=== PATIENT | male | born 1940 | race Caucasian/White ===

== ENCOUNTER 2017-12-22 12:18 | Emergency (ER) | payer MEDICARE, OTHER ==
[~2017-12-22] VITALS: Ht 180.3 cm; Wt 97.0 kg
[~2017-12-22 12:18] MED LIST: ATOR20TA42 PO; COUM5TAB PO; ENAL20TA81 PO; HYDR12.56 PO; PROT40TA PO; TOPR25TA2 PO; WARF2.5 PO
[2017-12-22] MEDS ORDERED: IOHEXOL 350 MG/ML 10 ML VIAL (for RAD DIAG) IVCONTRAST ONE (12:19)
[2017-12-22 12:22] VITALS: BP 160/76; PULSE 64; RESP 19; TEMP 97.8; O2SAT 97
[2017-12-22] MEDS ORDERED: SODIUM CHLOR 0.9% 1000 ML INJ 1,000 ML IV SCH (12:43)
[2017-12-22] MEDS ORDERED: MORPHINE SULFATE 4 MG/ML INJ IV PUSH ONE (12:45)
[2017-12-22] MEDS ORDERED: METOCLOPRAMIDE HCL 10 MG/2 ML VIAL IV PUSH ONE (12:45)
--- NOTE | 2017-12-22 13:51 | PD ---
HPI Chief Complaint: Abdominal Pain Time Seen by Provider: 12:29 Travel History International Travel<30 days: No Contact w/Intl Traveler<30days: No Traveled to known affect area: No History of Present Illness HPI 77-year-old male that presents to the ED for evaluation of abdominal cramping. Per patient his abdominal cramping since last night. Per patient he started on the upper abdomen and then slowly moved towards the lower abdomen. Per patient he has a history of diverticulitis. Per patient he feels somewhat similar except he does not have diarrhea. Per patient he has had a hernia repair on the left lower quadrant years ago. He has not had any surgeries in at least 5 years. Denies any recent travel. Per patient he had a normal bowel movement today but was not per patient "significant". He denies any blood in his stool. He denies any nausea or vomiting. Per patient the pain comes in waves and feels like a cramping. Per patient for about a year she has been having cramps on his arms and legs. Per patient he is never seen anybody for that as he thought it may be just related to his aging. Per patient abdominal pain felt kind of similar to the crampings that he has had on his arms and legs but it was more significant. Per significant other he was woken up by the pain multiple times through the night. She has no allergies to medication. No other medical issues. PFSH Past Medical History Hx Anticoagulant Therapy: Yes Atrial Fibrillation: Yes Cardiovascular Problems: Yes (A-FIB, HTN) Hypertension: Yes Past Surgical History Joint Replacement: Yes (RT HIP) Other Surgery: Yes (HERNIA REPAIR) Social History Alcohol Use: Yes (2 OR 3 MARTINI'S A DAY) Tobacco Use: No Substance Use: No Allergies-Medications (Allergen,Severity, Reaction): Coded Allergies: No Known Allergies (Verified Allergy, Mild, 06/18/07) Reported Meds & Prescriptions Reported Meds & Active Scripts Active Cipro (Ciprofloxacin HCl) 500 Mg Tab 500 Mg PO BID 10 Days Flagyl (Metronidazole) 500 Mg Tab 500 Mg PO BID 10 Days Zofran Odt (Ondansetron Odt) 4 Mg Tab 4 Mg SL Q6HR PRN Hydrocodone-Acetaminophen 5-325 mg Tab 1 Tab PO Q6H PRN Protonix (Pantoprazole Sodium) 40 Mg Tabdr 40 Mg PO DAILY Reported Toprol Xl (Metoprolol Succinate) 25 Mg Tabcr 25 Mg PO DAILY Hydrochlorothiazide (Miscellaneous Medication) 12.5 Mg Cap 0 Mg PO DAILY UNKNOWN DOSE Vasotec (Enalapril Maleate) 20 Mg Tab 20 Mg PO BID Coumadin 5 mg (Warfarin Sodium) 5 Mg Tab 5 Mg PO MONWEDFRI 3 Days Coumadin (Warfarin Sodium) 2.5 Mg Tab 2.5 Mg PO SSTT 4 Days Lipitor (Atorvastatin Calcium) 20 Mg Tab 20 Mg PO DAILY Review of Systems Except as stated in HPI: all other systems reviewed are Neg Physical Exam Narrative GENERAL: SKIN: Warm and dry. HEAD: Atraumatic. Normocephalic. EYES: Pupils equal and round. No scleral icterus. No injection or drainage. ENT: No nasal bleeding or discharge. Mucous membranes pink and moist. Tongue is midline. No uvula deviation. NECK: Trachea midline. No JVD. CARDIOVASCULAR: Regular rate and rhythm. No murmurs, S3, S4. RESPIRATORY: No accessory muscle use. Clear to auscultation. Breath sounds equal bilaterally. GASTROINTESTINAL: Abdomen soft, reproducible pain on the left lower quadrant, nondistended. Hepatic and splenic margins not palpable. MUSCULOSKELETAL: Extremities without clubbing, cyanosis, or edema. No obvious deformities. Full range of motion of the upper and lower extremities bilaterally. 2+ pulses bilaterally. NEUROLOGICAL: Awake and alert. No obvious cranial nerve deficits. Motor grossly within normal limits. Five out of 5 muscle strength in the arms and legs. Normal speech. PSYCHIATRIC: Appropriate mood and affect; insight and judgment normal. Data Data Last Documented VS Vital Signs Date Time Temp Pulse Resp B/P (MAP) Pulse Ox O2 Delivery O2 Flow Rate FiO2 12/22/17 12:22 97.8 64 19 160/76 (104) 97 Orders Orders Complete Blood Count With Diff (12/22/17 12:43) Comprehensive Metabolic Panel (12/22/17 12:43) Lipase (12/22/17 12:43) Lactic Acid (12/22/17 12:43) Prothrombin Time / Inr (Pt) (12/22/17 12:43) Act Partial Throm Time (Ptt) (12/22/17 12:43) Urinalysis - C+S If Indicated (12/22/17 12:43) Ct Abd/Pel W Iv Contrast(Rout) (12/22/17 12:43) Iv Access Insert/Monitor (12/22/17 12:43) Morphine Inj (Morphine Inj) (12/22/17 12:45) Sodium Chlor 0.9% 1000 Ml Inj (Ns 1000 M (12/22/17 12:43) Magnesium (Mg) (12/22/17 12:43) Metoclopramide Inj (Reglan Inj) (12/22/17 12:45) Iohexol 350 Inj (Omnipaque 350 Inj) (12/22/17 12:19) Metronidazole 500 Mg Inj (Flagyl 500 Mg (12/22/17 16:15) Ciprofloxacin 200 Mg Premix (Cipro 200 M (12/22/17 16:15) Ed Discharge Order (12/22/17 16:11) Labs Laboratory Tests Test 12/22/17 13:08 12/22/17 13:30 White Blood Count 9.9 TH/MM3 Red Blood Count 4.17 MIL/MM3 Hemoglobin 14.0 GM/DL Hematocrit 40.2 % Mean Corpuscular Volume 96.5 FL Mean Corpuscular Hemoglobin 33.5 PG Mean Corpuscular Hemoglobin Concent 34.7 % Red Cell Distribution Width 13.8 % Platelet Count 185 TH/MM3 Mean Platelet Volume 7.7 FL Neutrophils (%) (Auto) 70.6 % Lymphocytes (%) (Auto) 15.6 % Monocytes (%) (Auto) 12.2 % Eosinophils (%) (Auto) 1.0 % Basophils (%) (Auto) 0.6 % Neutrophils # (Auto) 7.0 TH/MM3 Lymphocytes # (Auto) 1.5 TH/MM3 Monocytes # (Auto) 1.2 TH/MM3 Eosinophils # (Auto) 0.1 TH/MM3 Basophils # (Auto) 0.1 TH/MM3 CBC Comment DIFF FINAL Differential Comment Prothrombin Time 25.8 SEC Prothromb Time International Ratio 2.6 RATIO Activated Partial Thromboplast Time 38.3 SEC Blood Urea Nitrogen 14 MG/DL Creatinine 1.13 MG/DL Random Glucose 136 MG/DL Total Protein 7.2 GM/DL Albumin 3.2 GM/DL Calcium Level 8.4 MG/DL Magnesium Level 1.9 MG/DL Alkaline Phosphatase 83 U/L Aspartate Amino Transf (AST/SGOT) 26 U/L Alanine Aminotransferase (ALT/SGPT) 24 U/L Total Bilirubin 0.8 MG/DL Sodium Level 135 MEQ/L Potassium Level 4.1 MEQ/L Chloride Level 99 MEQ/L Carbon Dioxide Level 28.9 MEQ/L Anion Gap 7 MEQ/L Estimat Glomerular Filtration Rate 63 ML/MIN Lactic Acid Level 0.9 mmol/L Lipase 59 U/L Urine Color YELLOW Urine Turbidity CLEAR Urine pH 6.5 Urine Specific [place] 1.011 Urine Protein 30 mg/dL Urine Glucose (UA) NEG mg/dL Urine Ketones NEG mg/dL Urine Occult Blood NEG Urine Nitrite NEG Urine Bilirubin NEG Urine Urobilinogen LESS THAN 2.0 MG/DL Urine Leukocyte Esterase NEG Urine RBC LESS THAN 1 /hpf Urine Mucus FEW /lpf Microscopic Urinalysis Comment CULT NOT INDICATED MDM Medical Decision Making Medical Screen Exam Complete: Yes Emergency Medical Condition: Yes Medical Record Reviewed: Yes Interpretation(s) CBC & BMP Diagram 12/22/17 13:08 Total Protein 7.2, Albumin 3.2 L, Calcium Level 8.4 L, Magnesium Level 1.9, Alkaline Phosphatase 83, Aspartate Amino Transf (AST/SGOT) 26, Alanine Aminotransferase (ALT/SGPT) 24, Total Bilirubin 0.8 Last Impressions Abdomen/Pelvis CT 12/22/17 1243 Signed Impressions: CONCLUSION: 1. Acute distal descending diverticulitis without perforation, abscess, or obs truction. Differential Diagnosis Diverticulitis versus acute abdomen versus colitis versus kidney stone versus UTI versus infection Narrative Course 77-year-old male that presents to the ED for evaluation of abdominal pain. Patient was properly examined and was found to have signs and symptoms consistent appears to be abdominal pain. Unclear telemetry at this time will likely diverticulitis. Labs and imaging order. Labs and imaging showed what appears to be acute diverticulitis. Patient was reassured. Patient was given IV doses of antibiotics. Case discussed with my attending Dr. Guthrie agrees with discharge. Patient was discharged home with prescription for Cipro, Flagyl , Zofran, Lortab for pain. Told to follow-up closely with PCP. See ED if worsening symptoms. Diagnosis Primary Impression: Diverticulitis large intestine Qualified Codes: K57.32 - Diverticulitis of large intestine without perforation or abscess without bleeding Patient Instructions: General Instructions Additional Instructions: Take medications as prescribed. Follow-up with PCP. See ED for any worsening symptoms. Do not drink or drive while taking pain medication. Apply ice or heat as needed for pain Drink plenty of fluids. Med/Other Pt SpecificInfo: Prescription(s) given Scripts Ciprofloxacin (Cipro) 500 Mg Tab 500 MG PO BID for Infection for 10 Days, #20 TAB 0 Refills Prov: Lauren Monroe MD 12/22/17 Metronidazole (Flagyl) 500 Mg Tab 500 MG PO BID for Infection for 10 Days, #20 TAB 0 Refills Prov: Lauren Monroe MD 12/22/17 Ondansetron Odt (Zofran Odt) 4 Mg Tab 4 MG SL Q6HR Y for Nausea/Vomiting, #20 TAB 0 Refills Prov: Lauren Monroe MD 12/22/17 Hydrocodone-Acetaminophen (Hydrocodone-Acetaminophen) 5-325 mg Tab 1 TAB PO Q6H Y for PAIN, #10 TAB 0 Refills Prov: Lauren Monroe MD 12/22/17 Disposition: 01 DISCHARGE HOME Condition: Stable Ramiro Staton December 22, 2017 13:51
[2017-12-22 14:03] LABS: BASOPHIL # 0.1 TH/MM3 (0-0.2); BASOPHIL % 0.6 % (0.0-2.0); EOSINOPHIL # 0.1 TH/MM3 (0-0.4); HEMATOCRIT 40.2 % (39.0-51.0); LYMPH % 15.6 % (9.0-44.0); LYMPHOCYTE # 1.5 TH/MM3 (1.0-4.8); MEAN CELL VOLUME 96.5 FL (80.0-100.0); MEAN CORPUSCULAR HEMOGLOBIN 33.5 PG (27.0-34.0); MEAN CORPUSCULAR HGB CONC 34.7 % (32.0-36.0); MEAN PLATELET VOLUME 7.7 FL (7.0-11.0); MONO % 12.2 % (0.0-8.0); MONOCYTE # 1.2 TH/MM3 (0-0.9); NEUT % 70.6 % (16.0-70.0); PLATELET COUNT 185 TH/MM3 (150-450); RED BLOOD COUNT 4.17 MIL/MM3 (4.50-5.90); RED CELL DISTRIBUTION WIDTH 13.8 % (11.6-17.2); WHITE BLOOD COUNT 9.9 TH/MM3 (4.0-11.0)
[2017-12-22 14:19] LABS: INTERNATIONAL NORMALIZED RATIO 2.6 RATIO; PROTHROMBIN TIME - PATIENT 25.8 SEC (9.8-11.6)
[2017-12-22 14:28] LABS: BILIRUBIN, URINE NEG (NEG); BLOOD, URINE NEG (NEG); GLUCOSE,URINE NEG (NEG); KETONE, URINE NEG (NEG); MUCUS URINE FEW /lpf (OCC); NITRITE,URINE NEG (NEG); PH, URINE 6.5 (5.0-8.5); URINE COLOR YELLOW (YELLW/STRAW); URINE LEUKOCYTE ESTERASE NEG (NEG)
[2017-12-22 14:32] LABS: ALBUMIN 3.2 GM/DL (3.4-5.0); AST (GOT) 26 U/L (15-37); BICARBONATE 28.9 MEQ/L (21.0-32.0); BLOOD UREA NITROGEN 14 MG/DL (7-18); CALCIUM 8.4 MG/DL (8.5-10.1); CHLORIDE 99 MEQ/L (98-107); CREATININE 1.13 MG/DL (0.60-1.30); GLOMERULAR FILTRATION RATE 63 ML/MIN (>89); GLUCOSE,RANDOM 136 MG/DL (74-106); MAGNESIUM 1.9 MG/DL (1.5-2.5); SODIUM (NA) 135 MEQ/L (136-145)
[2017-12-22 14:36] LABS: ALKALINE PHOSPHATASE 83 U/L (45-117); ALT (GPT) 24 U/L (12-78); TOTAL BILIRUBIN ADULT 0.8 MG/DL (0.2-1.0); TOTAL PROTEIN 7.2 GM/DL (6.4-8.2)
--- NOTE | 2017-12-22 15:56 | RADRPT ---
EXAM DATE: 12/22/2017 3:37 PM EDT AGE/SEX: 77 years / Male INDICATIONS: Abdominal pain, constipation for one day. CLINICAL DATA: This is the patient's initial encounter. Patient reports that signs and symptoms have been present for 1 day and indicates a pain score of 4/10. MEDICAL/SURGICAL HISTORY: Hypertension. AFIB . Hernia repair. ORAL CONTRAST: No oral contrast ingested. RADIATION DOSE: 8.63 CTDI (mGy) COMPARISON: None. TECHNIQUE: Multiple contiguous axial images were obtained through the abdomen and pelvis following b olus infusion of 96 ml Omnipaque 350 (iohexol) nonionic water-soluble contrast as a single exam dos e. No oral contrast ingested. Using automated exposure control and adjustment of the mA and/or kV ac cording to patient size, the radiation dose was kept as low as reasonably achievable to obtain optima l diagnostic quality images. FINDINGS: Lower Lungs: The visualized lower lungs are clear. Liver: The liver has a homogeneous density without space-occupying lesion. There is no dilation of th e biliary tree. Spleen: Homogeneous density without enlargement. Pancreas: Unremarkable without mass or calcification. Kidneys: Normal in size and shape. Small left cortical renal cyst. No evidence of mass or hydronephr osis. Adrenal Glands: Unremarkable. Aorta: Diffuse calcified atherosclerotic plaque. No aneurysmal change.. Bowel/Mesentery: There is an acute inflammatory process involving the mid descending colon. Scattere d diverticula within this region. Mild stranding of the adjacent fat. No obstruction, perforation, or abscess. No significant stool burden. Small bowel and stomach are unremarkable.. Abdominal Wall: Intact. Retroperitoneum: No evidence of adenopathy in the retrocrural, para-aortic, or deep pelvic regions. Bladder: Contours are smooth. Reproductive Organs: No abnormal masses or calcifications seen. Inguinal: The inguinal region is unremarkable without evidence of adenopathy. 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 Right hip prosthesis.. CONCLUSION: 1. Acute distal descending diverticulitis without perforation, abscess, or obstruction. Electronically signed by: Braden Rodgers MD 12/22/2017 3:55 PM EDT
[2017-12-22] MEDS ORDERED: HYDR-3516 PO (16:10)
[2017-12-22] MEDS ORDERED: CIPR-9 PO (16:10)
[2017-12-22] MEDS ORDERED: METR-1 PO (16:10)
[2017-12-22] MEDS ORDERED: ZOFR4TAB3 SL (16:10)
[2017-12-22] MEDS ORDERED: metroNIDAZOLE 500 MG INJ 100 ML IV ONE (16:15)
[2017-12-22] MEDS ORDERED: CIPROFLOXACIN 200 MG PREMIX 100 ML IV ONE (16:15)
[2017-12-22 17:38] VITALS: BP 154/74
== END 2017-12-22 17:40 | disposition home or self-care (01) ==
LOC: NEPC 12:18
DX: K57.32 Diverticulitis of large intestine without perforation or abscess without bleeding (principal); I10 Essential (primary) hypertension; I48.91 Unspecified atrial fibrillation; Z79.01 Long term (current) use of anticoagulants
CPT/HCPCS: 74177; 80053; 81001; 83605; 83690; 83735; 85025; 85610; 85730; 96374; 96375; 99284; J0744; J2765; J7030; Q9967